=== PATIENT | female | born 1955 | race African-American/Black ===

== ENCOUNTER 2018-05-09 12:28 | Emergency (ER) | payer SELFPAY ==
[2018-05-09] MEDS ORDERED: Triamcinolone 40 MG/ML VIAL ONE (12:45)
--- NOTE | 2018-05-09 13:37 | RAD ---
2 VIEW CHEST: Date: 05/09/18 HISTORY: Cough. FINDINGS: Lungs appear clear. No infiltrate. Mild hyperexpansion. Heart and mediastinum unremarkable. IMPRESSION: No acute process. POS: [facility]
== END 2018-05-09 13:35 | disposition home or self-care (01) ==
LOC: MADERS 12:28
DX: J44.1 Chronic obstructive pulmonary disease with (acute) exacerbation (principal); F17.210 Nicotine dependence, cigarettes, uncomplicated
CPT/HCPCS: 71046; 96372; J3301; J7620

== ENCOUNTER 2019-04-24 01:40 | Emergency (ER) | payer BC, SELFPAY ==
[2019-04-24] MEDS ORDERED: Adacel (T-DAP) 0.5 ML SYRINGE ONE (02:06)
[2019-04-24] MEDS ORDERED: Sulfameth/Trimethoprim DS 800-160mg TAB ONE (02:06)
[2019-04-24] MEDS ORDERED: Silver Sulfadiazine 1% Cream 50 GM TUBE ONE (02:08)
== END 2019-04-24 02:30 | disposition home or self-care (01) ==
LOC: MADERS 01:40
DX: T20.65XA Corrosion of second degree of scalp [any part], initial encounter (principal); T20.67XA Corrosion of second degree of neck, initial encounter; T20.611A Corrosion of second degree of right ear [any part, except ear drum], initial encounter; T49.4X5A Adverse effect of keratolytics, keratoplastics, and other hair treatment drugs and preparations, initial encounter; T79.8XXA Other early complications of trauma, initial encounter; L08.9 Local infection of the skin and subcutaneous tissue, unspecified; I10 Essential (primary) hypertension; Z87.891 Personal history of nicotine dependence
CPT/HCPCS: 16020; 90471; 90715

== ENCOUNTER 2020-10-26 14:52 | Emergency (ER) | payer BC | END 2020-10-26 15:24 | disposition home or self-care (01) | LOC: MADERS 14:52 | DX: R05 Cough (principal); F17.210 Nicotine dependence, cigarettes, uncomplicated | CPT/HCPCS: 99283 ==

== ENCOUNTER 2021-09-18 15:24 | Emergency (ER) | payer BC, MEDICARE | END 2021-09-18 16:43 | disposition home or self-care (01) | LOC: MADERS 15:24 | DX: I10 Essential (primary) hypertension (principal); F17.210 Nicotine dependence, cigarettes, uncomplicated | CPT/HCPCS: 99283 ==

== ENCOUNTER 2022-01-22 09:22 | Emergency (ER) | payer MEDICARE ==
[2022-01-22] MEDS ORDERED: predniSONE 20 MG TAB ONE (10:04)
[2022-01-22] MEDS ORDERED: Albuterol Sulfate 2.5 mg/3 ml Neb ONE (10:56)
== END 2022-01-22 11:27 | disposition home or self-care (01) ==
LOC: MADERS 09:22
DX: J18.9 Pneumonia, unspecified organism (principal); J98.01 Acute bronchospasm; F17.210 Nicotine dependence, cigarettes, uncomplicated; Z20.822 Contact with and (suspected) exposure to COVID-19
CPT/HCPCS: 71045; 87081; 87430; 87804 ×2; U0003; U0005; J7512; J7611; J7620

== ENCOUNTER 2023-04-06 19:08 | Emergency (ER) | payer MEDICARE ==
[~2023-04-06 19:08] MED LIST: Iopamidol 370 76% 100 ML VIAL ONE
[2023-04-06] MEDS ORDERED: methylPREDNISolone Sod Succ/PF 125 MG/2 ML VIAL ONE (19:32)
[2023-04-06 19:44] LABS: #Basophils 0.1 thou/uL (0.0-0.2); #Eosinphils 0.1 thou/uL (0.0-0.7); #Lymphocytes 1.4 thou/uL (1.20-3.40); #Monocytes 0.5 thou/uL (0.11-0.59); #Neutrophils 3.5 thou/uL (1.40-6.50); %Basophils 2.6 % (0.0-1.0); %Eosinophils 1.6 % (0.0-10.0); %Lymphocytes 25.2 % (21.0-51.0); %Monocytes 8.8 % (0.0-10.0); %Neutrophils 61.8 % (42.0-75.0); Hematocrit 40.9 % (36.0-47.0); Hemoglobin 12.7 g/dL (12.0-16.0); Mean Corpuscular Hemoglobin 25.8 pg (27.0-31.0); Mean Corpuscular Volume 83.1 fl (78.0-98.0); Mean Platelet Volume 8.5 fL (7.4-10.4); Platelet Count 223 10x3/uL (130-400); RBC Distribution Width 13.5 % (11.5-14.5); Red Blood Cell (RBC) Count 4.92 mill/uL (4.20-5.40); White Blood Cell (WBC) Count 5.6 10x3/uL (4.8-10.8)
[2023-04-06 19:55] LABS: ALT (SGPT) 25 U/L (8-55); AST (SGOT) 22 U/L (5-34); Albumin 4.6 g/dL (3.4-4.8); Alkaline Phosphatase 100 U/L (40-110); Anion Gap 18 mmol/L (10-20); BUN (Urea Nitrogen) 11 mg/dL (9.8-20.1); Bilirubin, Total 0.3 mg/dL (0.2-1.2); Calc. Creatinine Clearance 0 mL/min (70-130); Calcium 8.7 mg/dL (7.8-10.44); Carbon Dioxide 20 mmol/L (23-31); Chloride 104 mmol/L (98-107); Estimated GFR 89; Glucose 167 mg/dL (80-115); Potassium 3.9 mmol/L (3.5-5.1); Protein, Total 7.6 g/dL (5.8-8.1); Sodium 138 mmol/L (136-145); Troponin I Less than 0.010 ng/mL (< 0.028)
[2023-04-06] MEDS ORDERED: Benzonatate 100 MG CAP ONE (21:49)
== END 2023-04-06 22:00 | disposition home or self-care (01) ==
LOC: MADERS 19:08
DX: J44.1 Chronic obstructive pulmonary disease with (acute) exacerbation (principal); R91.8 Other nonspecific abnormal finding of lung field; I10 Essential (primary) hypertension; F17.210 Nicotine dependence, cigarettes, uncomplicated
CPT/HCPCS: 71045; 71260; 80053; 83880; 84484; 85025; 93005; 94760; 96374; J2930; Q9967